=== PATIENT | male | born 1965 | race Caucasian/White ===

== ENCOUNTER → 2017-11-16 | Outpatient (CLI) | payer OTHER ==
--- NOTE | 2017-11-16 16:32 | Diagnostic Imaging Report ---
EXAM: Left knee INDICATION: Knee pain 3 views were obtained. COMPARISON: There are no prior studies available for comparison. FINDINGS: There is no fracture, dislocation or acute bony abnormality evident. The knee joint itself is fairly well-maintained. The soft tissues are unremarkable. IMPRESSION: There is no evidence for an acute bony abnormality. Dictated by: Dictated on workstation # [id number]
--- NOTE | 2017-11-16 16:36 | Diagnostic Imaging Report ---
INDICATION: Back pain EXAM: Lumbar spine. AP, lateral and spot lateral views were obtained. COMPARISON: There are no prior lumbar spine examinations available for comparison. FINDINGS: The lateral view does show the vertebrae heights and alignment to be generally within normal limits and the intervertebral spaces to be fairly well-maintained. There is no fracture or acute bony abnormality evident. Small spurs are seen along the anterior aspects of L3 and L5. The lateral view also shows at least moderate degenerative disease of the lower thoracic spine. These degenerative changes are similar to the prior chest exam of 11/02/2014. There is no sign of a paraspinal mass. There is mild symmetrical sclerosis of the sacroiliac joints. IMPRESSION: 1. There is no evidence for an acute bony abnormality. 2. If there is clinical concern regarding spinal stenosis or nerve encroachment, then MRI would be recommended for further study. Dictated by: Dictated on workstation # [id number]
--- NOTE | 2017-11-16 16:45 | Diagnostic Imaging Report ---
INDICATION: Sacroiliac joints. INDICATION: Back pain. FINDINGS: Three views were obtained. There is no fracture, dislocation, or acute bony abnormality evident. There is mild symmetrical sclerosis of the sacroiliac joints. The soft tissues are unremarkable. IMPRESSION: There is no evidence for an acute bony abnormality. Dictated by: Dictated on workstation # [id number]
== END ==
LOC: RAD 14:58
PROVIDERS: ATTEND Nurse Practitioner Family
DX: M54.42 Lumbago with sciatica, left side (principal)
CPT/HCPCS: 72100; 72202; 73562

== ENCOUNTER → 2018-03-29 | Outpatient (CLI) | payer OTHER ==
--- NOTE | 2018-03-29 11:17 | Diagnostic Imaging Report ---
INDICATION: Right shoulder pain AP, oblique, and lateral views of the right shoulder are obtained. No fracture or dislocation is seen. There is no acute bony abnormality. There is mild degenerative change of the glenohumeral joint and AC joint. IMPRESSION: Mild degenerative changes with no acute bony abnormality. Dictated by: Dictated on workstation # [id number]
== END ==
LOC: CARD 10:11
PROVIDERS: ATTEND Nurse Practitioner Family
DX: M19.011 Primary osteoarthritis, right shoulder (principal); I49.9 Cardiac arrhythmia, unspecified
CPT/HCPCS: 73030; 93005

== ENCOUNTER → 2018-04-12 | Outpatient (CLI) | payer OTHER | LOC: RAD 09:58 | PROVIDERS: ATTEND Nurse Practitioner Family | DX: M25.511 Pain in right shoulder (principal); Z53.8 Procedure and treatment not carried out for other reasons ==

== ENCOUNTER 2018-05-24 08:22 | Outpatient (CLI) | payer OTHER ==
[~2018-05-24] VITALS: Ht 170.2 cm; Wt 167.5 kg
[2018-05-24] MEDS ORDERED: METO-333 PO (08:33)
[2018-05-24] MEDS ORDERED: LEVO5TAB28 PO (08:33)
[2018-05-24 08:38] VITALS: BP 149/96
== END 2018-05-24 15:30 | disposition home or self-care (01) ==
LOC: PREOP 08:22
PROVIDERS: ATTEND Orthopaedic Surgery
DX: Z01.818 Encounter for other preprocedural examination (principal)
CPT/HCPCS: 87081

== ENCOUNTER 2018-05-29 08:40 | Day surgery (SDC) | payer OTHER ==
--- NOTE | 2018-05-20 12:01 | HISTORY AND PHYSICAL ---
DATE OF SERVICE: ADMISSION HISTORY AND PHYSICAL DATE OF ADMISSION: 05/29/2018. This will be for outpatient surgery on 05/29/2018, for right shoulder arthroscopy and rotator cuff repair. HISTORY OF PRESENT ILLNESS: The patient is a 53-year-old right hand dominant gentleman who injured his right shoulder when he was pulling on his dog leash. He felt immediate pain in his shoulder. He denies prior history of shoulder problems, but was a painter helper spray for years. He reports pain and weakness in his shoulder. He denies neck pain and denies paresthesias. He underwent an MRI which showed a massive rotator cuff tear with retraction. REVIEW OF SYSTEMS: No chest pain or shortness of breath. No dysuria. PAST MEDICAL HISTORY: Allergic rhinitis, sciatica. PAST SURGICAL HISTORY: Hypospadias. FAMILY HISTORY: Significant for cancer, hypertension. PRIMARY CARE PROVIDER: Mamta Iqabl DO. MEDICATIONS: 1. Cyclobenzaprine. 2. Xyzal. 3. Lyrica. 4. Meloxicam. ALLERGIES: PENICILLIN. SOCIAL HISTORY: The patient drinks alcohol occasionally. He is a former smoker. DIAGNOSTIC DATA: His outside MRI reveals a large retracted supraspinatus and infraspinatus tears with retraction to the glenoid. PHYSICAL EXAMINATION: GENERAL: The patient is well developed, well-nourished, in no acute distress. HEENT: Normocephalic, atraumatic. Pupils are equal, round, and react to light. Oropharynx is clear. NECK: Supple, no lymphadenopathy. LUNGS: Clear to auscultation bilaterally. HEART: Regular rate and rhythm. ABDOMEN: Soft, nontender, and nondistended. EXTREMITIES: The right shoulder shows active forward elevation of 170 degrees, external rotation is 40 degrees, internal rotation to his lower lumbar spine. He has a positive drop arm and marked weakness of external rotation. Negative Spurling maneuver. IMPRESSION: Right shoulder massive rotator cuff tear. PLAN: Right shoulder arthroscopy with open rotator cuff repair. We discussed risks, benefits, options, ramifications and recovery. He understands and wished to proceed. This will be a surgery on 05/29/2018. Job ID: [id number] DocumentID: [id number] Dictated Date: 05/20/2018 11:02:39 Compressor Operator Portable Date: 05/20/2018 12:00:11 Dictated By: SOFYA NUNEZ MD
[~2018-05-29] VITALS: Ht 170.2 cm; Wt 163.9 kg
[~2018-05-29 08:40] MED LIST: LEVO5TAB28 PO; METO-333 PO
[2018-05-29] MEDS ORDERED: LACTATED RINGERS 1,000 ML IV PRN (08:44)
[2018-05-29 08:45] VITALS: BP 150/79
[2018-05-29] MEDS ORDERED: CLINDAMYCIN 600 MG/50 ML IVPB 50 ML IV ONE (08:45)
--- NOTE | 2018-05-29 08:59 | Progress Note-Pre Operative ---
Pre-Operative Progress Note H&P Reviewed The H&P was reviewed, patient examined and no changes noted. Date Seen by Provider: May 29, 2018 Time Seen by Provider: 08:59 Date H&P Reviewed: May 29, 2018 Time H&P Reviewed: 08:59 Pre-Operative Diagnosis: right rotator cuff tear and SLAP tear SOFYA NUNEZ MD May 29, 2018 08:59
--- NOTE | 2018-05-29 09:01 | Progress Note-Post Operative ---
Post-Operative Progess Note Surgeon (s)/Midwife (s) Surgeon SOFYA NUNEZ MD Midwife: Salvador Orellana Pre-Operative Diagnosis right rotator cuff tear and SLAP tear Post-Operative Diagnosis right rotator cuff tear, SLAP tear and labral tear Procedure & Operative Findings Date of Procedure 05/29/18 Procedure Performed/Findings right shoulder arthroscopic biceps tenotomy, labral debridement, acromioplasty and open rotator cuff repair Anesthesia Type GETA Estimated Blood Loss Estimated blood loss (mL): minimal Specimens/Packing Specimens Removed none Packing: none SOFYA NUNEZ MD May 29, 2018 09:01
[2018-05-29] MEDS ORDERED: TRAM50TA2 PO (09:10)
[2018-05-29] MEDS ORDERED: oxyCODONE/APAP 5/325MG (PERCOCET 5) TABLET PO PRN (09:15)
--- OUTSIDE RECORDS SUMMARY | 2018-05-29 09:55 | XMS REPORT ---
Author Author MOISES BARRON Organization [facility] Address [address] [place] [address] Phone Unavailable Care Team Providers Care Sanitation Supervisor Name Role Phone MOISES BARRON Unavailable Unavailable PROBLEMS Unknown Problems ALLERGIES Substance Reaction Event Type Date Status Penicillin G Sodium Unknown Drug Allergy Jan, Active ENCOUNTERS Encounter Location Date Diagnosis [facility] [id number] [place] [address] [phone] Mar, Encounter for dental examination Z01.20 [facility] [id number] [place] [address] [phone] Jan, Dental examination Z01.20 [facility] [id number] [place] [address] [phone] Dec, Dental examination Z01.20 [facility] [id number] [place] [address] [phone] Nov, Dental examination V72.2 IMMUNIZATIONS No Known Immunizations SOCIAL HISTORY Never Assessed REASON FOR VISIT PROPHY/ART PLAN OF CARE Activity Details Follow Up ryan Reason:srpLL&prophy VITAL SIGNS Blood pressure systolic 145 mmHg 2017-02-15 Blood pressure diastolic 82 mmHg 2017-02-15 MEDICATIONS Medication Instructions Dosage Frequency Start Date End Date Duration Status Naproxen Active RESULTS No Results PROCEDURES Procedure Date Ordered Result Body Site COMP ORAL EVALUATION - NEW/EST PT Feb 15, 2017 INTRAORL-PERIAPICAL 1 FILM 14408 Feb 15, 2017 PANORAMIC FILM SEE ALSO CODE 28248 Feb 15, 2017 INTRAORL-PERIAPICAL EA ADD FILM Feb 15, 2017 INTRAORL-PERIAPICAL EA ADD FILM Feb 15, 2017 BITEWINGS - FOUR FILMS Feb 15, 2017 INTRAORL-PERIAPICAL EA ADD FILM Feb 15, 2017 INSTRUCTIONS MEDICATIONS ADMINISTERED No Known Medications MEDICAL (GENERAL) HISTORY Type Description Date Surgical History hypospadious 1979 Surgical History tonsils 1971
--- OUTSIDE RECORDS SUMMARY | 2018-05-29 09:55 | XMS REPORT ---
Author Author JAIRO ACOSTA Organization [facility] Address [address] [place] [address] Care Team Providers Care Adjuster Electrical Contacts Name Role Phone JAIRO ACOSTA Unavailable PROBLEMS Unknown Problems ALLERGIES Substance Reaction Event Type Date Status Penicillin G Sodium Unknown Drug Allergy Mar, Active ENCOUNTERS Encounter Location Date Diagnosis [facility] [id number] [place] [address] [phone] Mar, Encounter for dental examination Z01.20 [facility] [id number] [place] [address] [phone] Jan, Dental examination Z01.20 [facility] [id number] [place] [address] [phone] Dec, Dental examination Z01.20 [facility] [id number] [place] [address] [phone] Nov, Dental examination V72.2 IMMUNIZATIONS No Known Immunizations SOCIAL HISTORY Never Assessed REASON FOR VISIT prophy PLAN OF CARE Activity Details Follow Up First Available/4 mos Reason:Restorative/perio maint VITAL SIGNS Heart Rate 91 bpm 2017-04-12 Blood pressure systolic 131 mmHg 2017-04-12 Blood pressure diastolic 66 mmHg 2017-04-12 MEDICATIONS Medication Instructions Dosage Frequency Start Date End Date Duration Status Naproxen Active RESULTS No Results PROCEDURES Procedure Date Ordered Result Body Site PRDONTAL SCAL and ROOT PLAN 1-3 TEETH Apr 12, 2017 PRDONTAL SCAL and ROOT PLAN 1-3 TEETH Apr 12, 2017 INSTRUCTIONS MEDICATIONS ADMINISTERED No Known Medications MEDICAL (GENERAL) HISTORY Type Description Date Surgical History hypospadious 1979 Surgical History tonsils 1971
--- OUTSIDE RECORDS SUMMARY | 2018-05-29 09:55 | XMS REPORT | Continuity of Care Document ---
Author Author [facility] Organization [facility] Address Unknown Phone Unavailable Allergies Active Description Code Type Severity Reaction Onset Reported/Identified Relationship to Patient Clinical Status Yes Penicillins [id number] Drug Allergy Unknown N/A 05/24/2018 Medications There is no data. Problems Date Dx Coded Attending Type Code Diagnosis Diagnosed By 11/02/2014 TARA POPE R TESTING CONSULTANT Ot 786.05 11/02/2014 TOSHIA TARA R TESTING CONSULTANT Ot 786.2 11/10/2014 TOSHIA TARA R TESTING CONSULTANT Ot 786.05 11/10/2014 TOSHIA TARA R TESTING CONSULTANT Ot 786.2 11/10/2014 DANETTE RAMOS RADIO PERFORMER Ot 786.2 11/30/2014 OSCAR RAMOSSA M RADIO PERFORMER Ot 786.2 11/16/2017 TOSHIA TARA R TESTING CONSULTANT Ot 786.05 SHORTNESS OF BREATH 11/16/2017 TOSHIA TARA R TESTING CONSULTANT Ot 786.2 COUGH 11/16/2017 DANETTE RAMOS M RADIO PERFORMER Ot 786.2 COUGH 12/11/2017 ERUM, FLORY R TESTING CONSULTANT Ot M54.42 LUMBAGO WITH SCIATICA, LEFT SIDE 04/02/2018 ERUM, FLORY R TESTING CONSULTANT Ot I49.9 CARDIAC ARRHYTHMIA, UNSPECIFIED 04/02/2018 ERUM, FLORY R TESTING CONSULTANT Ot M19.011 PRIMARY OSTEOARTHRITIS, RIGHT SHOULDER 04/16/2018 ERUM, FLORY R TESTING CONSULTANT Ot M25.511 PAIN IN RIGHT SHOULDER 04/16/2018 ERUM, FLORY R TESTING CONSULTANT Ot Z53.8 PROCEDURE AND TREATMENT NOT CARRIED OUT 04/23/2018 ERUM FLORY R TESTING CONSULTANT Ot I49.9 CARDIAC ARRHYTHMIA, UNSPECIFIED 04/23/2018 ERUM, FLORY R TESTING CONSULTANT Ot M19.011 PRIMARY OSTEOARTHRITIS, RIGHT SHOULDER 05/27/2018 ENRIQUE SEYMOUR, SOFYA Verma Ot Z01.818 ENCOUNTER FOR OTHER PREPROCEDURAL EXAMIN Procedures There is no data. Results Test Result Range Methicillin resistant Staphylococcus aureus (MRSA) screening culture - 08:45 Methicillin resistant Staphylococcus aureus (MRSA) screening culture NEG NRG Encounters ACCT No. Visit Date/Time Discharge Status Pt. Type Provider Facility Loc./Unit Complaint [id number] 05/24/2018 08:22:00 05/24/2018 23:59:59 CLS Outpatient SOFYA NUNEZ MD [facility] PREOP RIGHT SHOULDER ROTATOR CUFF TEAR [id number] 05/03/2018 12:48:00 05/03/2018 23:59:59 CLS Preadmit ERUMFLORY ARNOLD R TESTING CONSULTANT [facility] CARD PVC'S,SKIPPED HEARTBEAT,PREOP [id number] 04/12/2018 09:58:00 04/12/2018 23:59:59 CLS Outpatient FLORY DANIELSON R TESTING CONSULTANT [facility] RAD RIGHT SHOULDER PAIN [id number] 03/29/2018 10:11:00 03/29/2018 23:59:59 CLS Outpatient FLORY DANIELSON R TESTING CONSULTANT [facility] CARD IRREGULAR HEARTBEAT [id number] 11/16/2017 14:58:00 11/16/2017 23:59:59 CLS Outpatient LALA DANIELSONON R TESTING CONSULTANT [facility] RAD L KNEE PAIN [id number] 11/02/2014 14:13:00 11/02/2014 23:59:59 CLS Outpatient DANETTE RAMOS [facility] RAD COUGH [id number] 02/21/2013 11:58:00 02/21/2013 23:59:59 CLS Outpatient [id number] 11/14/2012 08:50:00 11/14/2012 23:59:59 CLS Outpatient TARA POPE TESTING CONSULTANT [facility] RAD SOB,COUGH [id number] 05/29/2018 10:45:00 PEN Preadmit SOFYA NUNEZ MD [facility] RIGHT SHOULDER ROTATOR CUFF TEAR [id number] 04/12/2017 15:00:00 04/12/2017 23:59:59 [facility] 05/04/14 05/20/2018 17:25:25 05/20/2018 23:59:59 CLS Outpatient Mamta Iqbal
[2018-05-29] MEDS ORDERED: ROPIVACAINE 5MG/ML 30ML VIAL ONE (10:46)
[2018-05-29] MEDS ORDERED: MIDAZOLAM 2 MG/2 ML (VERSED) VIAL ONE ×2 (10:46→11:49)
[2018-05-29] MEDS ORDERED: fentaNYL INJECTION 100 MCG/2 ML AMP ONE (10:46)
[2018-05-29] MEDS ORDERED: LIDOCAINE PF 2% 5 ML (XYLOCAINE) VIAL ONE (10:49)
[2018-05-29] MEDS ORDERED: ROCURONIUM 10 MG/ML 5 ML SYRINGE IV ONE (10:49)
[2018-05-29] MEDS ORDERED: DEXAMETHASONE 10 MG/ML (DECADRON) 1 ML VIAL ONE (10:49)
[2018-05-29] MEDS ORDERED: proPOfol 200 MG/20 ML (DIPRIVAN) VIAL IV ONE (10:49)
[2018-05-29] MEDS ORDERED: SEVOFLURANE (ULTANE) 15 ML INHAL SOLN ONE (10:59)
[2018-05-29] MEDS ORDERED: BUPIVACAINE 0.25% 30 ML (SENSORCAINE) VIAL ONE (11:36)
[2018-05-29] MEDS ORDERED: morphine PF (DURAMORPH) 10 MG/10 ML AMP ONE (11:36)
[2018-05-29] MEDS ORDERED: DESFLURANE (SUPRANE) 15 ML INHAL SOLN ONE ×6 (12:32→13:12)
[2018-05-29] MEDS ORDERED: NEOSTIGMINE 1 MG/ML 5 ML SYRINGE ONE (13:12)
[2018-05-29] MEDS ORDERED: GLYCOPYRROLATE 0.2 MG/ML (ROBINUL) 2 ML VIAL ONE (13:12)
[2018-05-29] MEDS ORDERED: HYDROmorphone 2 MG/ML VIAL (DILAUDID) IV ONE (13:15)
[2018-05-29] MEDS ORDERED: ONDANSETRON 4 MG/2 ML (SDV) Z0FRAN IVP PRN (13:15)
[2018-05-29] MEDS ORDERED: MEPERIDINE (DEMEROL) INJ 50 MG/ML IVP ONE (13:15)
[2018-05-29] MEDS ORDERED: morphine INJ 10 MG/ML 1ML (SYR OR VIAL) IVP ONE (13:15)
[2018-05-29] MEDS ORDERED: PROMETHAZINE INJ 25 MG/ML (PHENERGAN) AMP IVP ONE (13:15)
--- NOTE | 2018-05-29 13:48 | Anesthesia-General Post-Op ---
General Patient Condition Mental Status/LOC: Same as Preop Cardiovascular: Satisfactory Nausea/Vomiting: Absent Respiratory: Satisfactory Pain: Controlled Complications: Absent Post Op Complications Complications None Follow Up Care/Instructions Patient Instructions None needed. Anesthesia/Patient Condition Patient Condition Patient is doing well, no complaints, stable vital signs, no apparent adverse anesthesia problems. ARACELI MARTINES DO May 29, 2018 13:48
[2018-05-29 14:05] VITALS: BP 138/104
[2018-05-29] MEDS ORDERED: OXYC-471 PO (14:26)
[2018-05-29 14:35] VITALS: BP 135/77
[2018-05-29 15:05] VITALS: BP 123/65
[2018-05-29 15:20] VITALS: BP 123/65
--- NOTE | 2018-05-29 15:26 | OPERATIVE REPORT ---
DATE OF SERVICE: 05/29/2018 PREOPERATIVE DIAGNOSES: 1. Right rotator cuff tear. 2. Right SLAP tear. 3. Right shoulder labral tear. POSTOPERATIVE DIAGNOSES: 1. Right rotator cuff tear. 2. Right SLAP tear. 3. Right shoulder labral tear. PROCEDURES: 1. Right shoulder open rotator cuff repair. 2. Right shoulder arthroscopic biceps tenotomy. 3. Right shoulder arthroscopic labral debridement. 4. Right shoulder arthroscopic acromioplasty. SURGEON: Saroj Nunez MD. TRANSMISSION REBUILDER: MOE Gibson, who assisted throughout the procedure and closed the incision. ANESTHESIA: General endotracheal. ESTIMATED BLOOD LOSS: Minimal. DRAINS: None. COMPLICATIONS: None. POSTOPERATIVE PLAN: Passive range of motion. Sling wear for 4 weeks. The patient was transferred to the recovery room awake and in stable condition. STATEMENT OF MEDICAL NECESSITY: The patient is a 53-year-old right-hand dominant gentleman with complaints of right shoulder pain and weakness on exam and weakness with abduction and external rotation. He underwent an MRI, which revealed a massive rotator cuff tear with atrophy of the supraspinatus and infraspinatus. The patient was counseled that this may be an irreparable tear due to functional impairment, the patient elected to proceed with surgical intervention. Examination under anesthesia revealed forward elevation of 110 degrees, external rotation of 85 degrees, internal rotation of 70 degrees. Arthroscopic findings demonstrated tearing of the supraspinatus, infraspinatus and subscapularis with retraction to the glenoid. He had a type 2 SLAP tear. In addition, there was an anterior labral flap from the 2 to 3 o'clock position. No significant glenoid or humeral head articular wear. Subacromial space demonstrated moderate bursitis with sloping of the anterolateral acromion. PROCEDURE IN DETAIL: After risks and benefits of the procedure were discussed and questions were answered, an informed consent was signed and placed on the chart. The operative site was confirmed in the preoperative holding area and initialed by the surgeon. The patient was then transferred to the operating room and after adequate levels of regional and general endotracheal anesthetic were obtained, a timeout was called confirming the operative site. Examination under anesthesia was performed with the above findings noted. The right shoulder and upper extremity were prepped and draped in the usual sterile fashion. Shoulder joint was injected with 20 mL of fluid. A standard posterior portal was placed under direct visualization. Anterior portal was created in the interval between the biceps, subscapularis and glenoid. The biceps anchor was released. The stump was debrided with a shaver. The anterior labral flap was debrided with the shaver back to a stable edge. The scope was then redirected into the subacromial space and lateral portal was created. Bursectomy was performed and the acromion was planed to a flat type 1 acromion. The lateral portal was then extended. The deltoid was split in line with its fibers leaving it attached to the acromion. The posterior aspect of the rotator cuff tear could be brought superiorly and this was repaired with a single corkscrew anchor in a modified Chucho-Martinez repair. The remainder of the rotator cuff could not be mobilized in any significant fashion. The wound was copiously irrigated. The portal sites were closed with 4-0 nylon in simple interrupted fashion. The deltoid was repaired in a [id number]-[id number] fashion using #2 FiberWire in [id number] interrupted fashion. The wound was further irrigated. A 2-0 Vicryl was used in subcutaneous tissue and skin was closed with 4-0 nylon in running alternating horizontal mattress fashion. The incision was infiltrated with plain Marcaine. The glenohumeral joint was injected with Duramorph. A soft dressing and sling were applied and the patient was transferred to the recovery room awake and in stable condition. Job ID: [id number] DocumentID: [id number] Dictated Date: 05/29/2018 12:55:17 Digital Sales Executive Date: 05/29/2018 15:25:37 Dictated By: SAROJ NUNEZ MD
== END 2018-05-29 15:30 | disposition home or self-care (01) ==
LOC: SDC 08:40
PROVIDERS: ATTEND Orthopaedic Surgery
DX: M75.121 Complete rotator cuff tear or rupture of right shoulder, not specified as traumatic (principal); M75.21 Bicipital tendinitis, right shoulder; M75.81 Other shoulder lesions, right shoulder; I10 Essential (primary) hypertension; J45.909 Unspecified asthma, uncomplicated; E66.01 Morbid (severe) obesity due to excess calories; Z68.43 Body mass index [BMI] 50.0-59.9, adult; Z87.891 Personal history of nicotine dependence; Z79.899 Other long term (current) drug therapy

== ENCOUNTER → 2018-08-13 | Outpatient (CLI) | payer OTHER ==
--- NOTE | 2018-08-13 15:27 | Diagnostic Imaging Report ---
INDICATION: Cough and shortness of air on exertion. Time of exam 3:11 p.m. COMPARISON: Comparison is made with prior chest from 11/02/2014. FINDINGS: The heart size is normal. The pulmonary vascularity is unremarkable. The lungs are clear. No infiltrate, effusion or pneumothorax is detected. IMPRESSION: No acute cardiopulmonary process is detected. Dictated by: Dictated on workstation # [id number]
== END ==
LOC: RAD 14:57
PROVIDERS: ATTEND Family Medicine
DX: R05 Cough (principal); R06.02 Shortness of breath
CPT/HCPCS: 71046

== ENCOUNTER 2018-08-21 16:41 | Outpatient (RCR) | payer OTHER ==
[~2018-08-21 16:41] MED LIST changes: +OXYC-471 PO; +TRAM50TA2 PO
== END 2018-08-29 | disposition home or self-care (01) ==
PROVIDERS: ATTEND Orthopaedic Surgery
DX: S46.011A Strain of muscle(s) and tendon(s) of the rotator cuff of right shoulder, initial encounter (principal); W19.XXXA Unspecified fall, initial encounter; I10 Essential (primary) hypertension

== ENCOUNTER 2018-10-11 14:46 | Outpatient (RCR) | payer OTHER | END 2018-11-05 09:43 | disposition home or self-care (01) | PROVIDERS: ATTEND Orthopaedic Surgery | DX: S46.011A Strain of muscle(s) and tendon(s) of the rotator cuff of right shoulder, initial encounter (principal); W19.XXXA Unspecified fall, initial encounter ==